=== PATIENT | male | born 1960 | race Caucasian/White ===

== ENCOUNTER 2016-05-03 19:16 | Inpatient (IN) | payer BC ==
--- NOTE | ~2016-05-03 | PRECARD ---
H&P [facility] [address] [place]. [address] NAME: DIMITRY LERNER : 60 STATUS : ADM IN [facility]#: [id number] AGE: 56 ADM/REG DATE : 05/03/16 MR#: [id number] REPORT SERV DATE: 05/03/16 DICTATED BY: EDDA KIRK DATE: 05/03/16 REPORT STATUS : Draft TRANSCRIBED BY: KITTY DATE: 05/03/16 DATE OF ADMISSION: 05/03/2016 HISTORY OF PRESENT ILLNESS: Mr. Dimitry Lerner is a 56-year-old gentleman, transferred from [facility] with acute inferior wall myocardial infarction. Mr. Lerner has no known cardiovascular disease. He developed chest pain about 6:30 in the evening, ongoing chest pressure, heaviness, 10/10 severity. His EKG demonstrated perhaps [address]-segment elevation, anterior ST depression, with lateral ST elevation as well in V5 to V6. He has not had discomfort previously. PAST MEDICAL HISTORY: Ongoing tobacco use. No diabetes, hypertension, or stroke or stroke-like symptoms. MEDICATIONS: None. SOCIAL HISTORY: Ongoing tobacco use, denies alcohol. FAMILY HISTORY: No definite family history of premature coronary artery disease. REVIEW OF SYSTEMS: Appears in pain. Negative and unremarkable except as noted above and below. All systems addressed. PHYSICAL EXAMINATION: VITAL SIGNS: Blood pressure is 132/62. GENERAL: Comfortable, in no acute distress. HEENT: No xanthelasma; lips without cyanosis LUNGS: Clear to auscultation, no wheezes, rales or rhonchi; good breath sounds. COR: No JVD or hepatojugular reflux, no murmurs, rubs or gallops, impulse mid clavicular line without carotid or abdominal bruits; normal S1 and S2. ABDOMEN: Bowel sounds positive, normal activity, without tenderness, masses or hepatosplenomegaly. EXTREMITIES: No edema, cyanosis. SKIN: Normal turgor. MS: Normal muscle strength, without kyphosis/scoliosis. NEURO/PSYCH: Alert and oriented times 4, no apparent anxiety or depression. IMAGING: EKG: Sinus rhythm with marked inferior elevation, anterior depression, ST elevation in lateral leads. ASSESSMENT: Mr. Lerner has acute inferior wall myocardial infarction. PLAN: To proceed with cardiac catheterization and possible angioplasty. I discussed the risks, benefits, and alternatives with Mr. Lerner. He understands and requests to proceed. H&P [address] [place] [address] NAME: DIMITRY LERNER : 60 STATUS : ADM IN PAT#: [id number] AGE: 56 ADM/REG DATE : 05/03/16 MR#: [id number] REPORT SERV DATE: 05/03/16 DICTATED BY: EDDA KIRK DATE: 05/03/16 REPORT STATUS : Draft TRANSCRIBED BY: KITTY DATE: 05/03/16 BEATRIZ/KITTY Edda Kirk M.D. / [id number] CC: Edda Kirk M.D. UNKNOWN
--- NOTE | ~2016-05-03 | DS ---
Discharge Summary [facility] [address] [place]. [address] NAME: LORI BURGOS : 60 STATUS : DIS IN PAT#: [id number] AGE: 56 ADM/REG DATE : 05/03/16 MR#: [id number] REPORT SERV DATE: 05/15/16 DICTATED BY: EDDA KIRK DATE: 05/14/16 REPORT STATUS : Draft TRANSCRIBED BY: KITTY DATE: 05/14/16 Data Collection from hospitalization DISCHARGE DIAGNOSES: 1. Acute inferior wall myocardial infarction. 2. Tobacco use. CONSULTATIONS: None. PROCEDURES: Cardiac catheterization and percutaneous coronary intervention, 05/03/2016. DISCHARGE MEDICATIONS: Ventolin one puff via inhaler every six hours as needed, aspirin 81 mg daily, Lipitor 40 mg at bedtime, Coreg 3.125 mg twice a day, Plavix 75 mg daily, Prinivil 5 mg at bedtime. He was instructed not to continue niacin. CONDITION ON DISCHARGE: Stable. DISPOSITION: The patient was discharged home on a low-cholesterol, low-sodium, cardiac diet with activities as instructed. He would follow up with me, 06/03/2016. He would follow up with his primary care provider as needed. HOSPITAL COURSE: This is a 56-year-old man, who was transferred from [facility] with an acute anterior wall myocardial infarction. The patient has no known cardiovascular disease. He developed chest pain around 6:30 in the evening with ongoing chest pressure and heaviness that was 10/10 in severity. His EKG demonstrated perhaps [address]-segment elevation and anterior ST depression with lateral ST elevation as well in V5 to V6. He had not had discomfort previously. EKG revealed sinus rhythm with marked inferior elevation, anterior depression, ST elevation in the lateral leads. It was felt that he would need to undergo cardiac catheterization and possible angioplasty. He was admitted to the hospital for further evaluation and treatment. 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 He tolerated this well and there were no complications. The following day, he had no chest pain or shortness of breath. He said he felt great. He was in a sinus rhythm. He had no ischemia seen on ECG. Over the next couple of days, he continued to progress. He remained in a normal sinus rhythm. He had no edema. His lungs remained clear. Discharge planning was performed. On 05/06/2016, the patient stated he felt fantastic. Discharge instructions were given. Due to his improved and stable condition, he was discharged home with the above-stated instructions. Information collected by: Diane Dominique I submit the above information as my discharge summary. REJI/KITTY Edda Kirk M.D. Discharge Summary [address] [address] NAME: LORI BURGOS : 60 STATUS : DIS IN PAT#: [id number] AGE: 56 ADM/REG DATE : 05/03/16 MR#: [id number] REPORT SERV DATE: 05/15/16 DICTATED BY: EDDA KIRK DATE: 05/14/16 REPORT STATUS : Draft TRANSCRIBED BY: KITTY DATE: 05/14/16 / [id number] CC: Edda Kirk M.D.
[2016-05-03 20:24] LABS: BASOPHILS 0.2 %; BASOPHILS ABSOLUTE 0.04 10/3/uL (0.0-0.16); EOSINOPHILS 0.9 %; EOSINOPHILS ABSOLUTE 0.19 10/3/uL (0.0-0.53); HEMOGLOBIN 15.4 g/dL (13.6-17.8); IMMATURE GRANULOCYTES 0.5 %; IMMATURE GRANULOCYTES ABSOLUTE 0.11 10/3/uL (0.0-0.11); LYMPHOCYTES 9.7 %; LYMPHOCYTES ABSOLUTE 2.12 10/3/uL (0.67-4.30); MEAN CORPUS HGB CONC 34.2 g/dL (32.0-36.0); MEAN CORPUSCULAR HEMOGLOB 29.3 pg (26.0-34.0); MEAN CORPUSCULAR VOLUME 85.6 fL (80-100); MEAN PLATELET VOLUME 9.4 fL (9.2-13.0); MONOCYTES 7.6 %; MONOCYTES ABSOLUTE 1.66 10/3/uL (0.21-1.20); NEUTROPHILS 81.1 %; NEUTROPHILS ABSOLUTE 17.82 10/3/uL (2.02-8.40); PLATELET COUNT 369 10/3/uL (150-400); RBC DISTRIBUTION WIDTH 12.8 % (12.0-16.0); RED CELL COUNT 5.26 10/6/uL (4.7-6.1); WHITE BLOOD CELLS 21.9 10/3/uL (4.5-10.5)
[2016-05-03 20:25] LABS: MANUAL DIFF NO %
[2016-05-03 20:33] LABS: INTERNATIONAL NORMAL RATI 1.1 UNITS (-); PARTIAL THROMBO TIME 77.6 SEC (22.5-37.2); PROTIME (NOT ORD) 14.2 SEC (12.0-14.5)
[2016-05-03 20:41] LABS: BUN (BLOOD UREA NITROGEN) 17 MG/DL (6-23); CALCIUM, SERUM 8.8 MG/DL (8.5-10.4); CHLORIDE, SERUM 103 MMOL/L (96-112); CO2 (CARBON DIOXIDE) 26 MMOL/L (24-34); CREATININE 0.82 MG/DL (0.70-1.30); GFR AFRICAN AMERICAN 115 ML/MIN (>=60); GFR NON AFRICAN AMERICAN 99 ML/MIN (>=60); GLUCOSE, SERUM 146 MG/DL (60-99); POTASSIUM, SERUM 3.9 MMOL/L (3.5-5.3); SODIUM, SERUM 139 MMOL/L (135-148)
[2016-05-03 20:44] LABS: CHEST PAIN PROFILE TAT 0 Hrs 25 Mins; TROPONIN I 0.16 NG/ML (<0.05)
[2016-05-03] MEDS ORDERED: VENTOLIN HFA INH (21:48)
[2016-05-03] MEDS ORDERED: NIACIN 500 PO (21:49)
[2016-05-03 22:22] LABS: BUN (BLOOD UREA NITROGEN) 16 MG/DL (6-23); CALCIUM, SERUM 8.6 MG/DL (8.5-10.4); CHLORIDE, SERUM 99 MMOL/L (96-112); CK-MB 294.5 NG/ML; CO2 (CARBON DIOXIDE) 30 MMOL/L (24-34); CPK 1930 U/L (0-200); CREATININE 0.85 MG/DL (0.70-1.30); GFR AFRICAN AMERICAN 113 ML/MIN (>=60); GFR NON AFRICAN AMERICAN 97 ML/MIN (>=60); GLUCOSE, SERUM 123 MG/DL (60-99); POTASSIUM, SERUM 4.1 MMOL/L (3.5-5.3); SODIUM, SERUM 137 MMOL/L (135-148)
[2016-05-03 22:23] LABS: CKMB INDEX (NOT ORD) 15.3
[2016-05-04 04:39] LABS: BASOPHILS 0.1 %; BASOPHILS ABSOLUTE 0.02 10/3/uL (0.0-0.16); EOSINOPHILS 0.6 %; EOSINOPHILS ABSOLUTE 0.09 10/3/uL (0.0-0.53); HEMATOCRIT 43.6 % (40.0-51.0); HEMOGLOBIN 14.6 g/dL (13.6-17.8); IMMATURE GRANULOCYTES 0.3 %; IMMATURE GRANULOCYTES ABSOLUTE 0.04 10/3/uL (0.0-0.11); LYMPHOCYTES 14.1 %; LYMPHOCYTES ABSOLUTE 1.97 10/3/uL (0.67-4.30); MANUAL DIFF NO %; MEAN CORPUS HGB CONC 33.5 g/dL (32.0-36.0); MEAN CORPUSCULAR VOLUME 86.7 fL (80-100); MEAN PLATELET VOLUME 9.6 fL (9.2-13.0); MONOCYTES 9.2 %; MONOCYTES ABSOLUTE 1.29 10/3/uL (0.21-1.20); NEUTROPHILS 75.7 %; NEUTROPHILS ABSOLUTE 10.57 10/3/uL (2.02-8.40); PLATELET COUNT 318 10/3/uL (150-400); RBC DISTRIBUTION WIDTH 12.9 % (12.0-16.0); RED CELL COUNT 5.03 10/6/uL (4.7-6.1)
[2016-05-04 04:59] LABS: BUN (BLOOD UREA NITROGEN) 17 MG/DL (6-23); CALCIUM, SERUM 8.6 MG/DL (8.5-10.4); CHLORIDE, SERUM 101 MMOL/L (96-112); CHOL/HDL RATIO(NOT ORDER) 5.1 (0-5); CHOLESTEROL 178 MG/DL (< 200); CO2 (CARBON DIOXIDE) 28 MMOL/L (24-34); CPK 4005 U/L (0-200); CREATININE 0.78 MG/DL (0.70-1.30); GFR AFRICAN AMERICAN 117 ML/MIN (>=60); GFR NON AFRICAN AMERICAN 101 ML/MIN (>=60); GLUCOSE, SERUM 115 MG/DL (60-99); HDL CHOLESTEROL 35 MG/DL (> 39); LDL CHOLESTEROL 116 MG/DL (< 130); NON-HDL CHOLESTEROL 143 MG/DL (< 160); SODIUM, SERUM 137 MMOL/L (135-148); TRIGLYCERIDE 137 MG/DL (< 150)
[2016-05-04 05:21] LABS: CK-MB 720.5 NG/ML
[2016-05-04 15:49] LABS: CK-MB 360.1 NG/ML
[2016-05-04 15:50] LABS: CKMB INDEX (NOT ORD) 15.2; TROPONIN I 75.7 NG/ML (<0.05)
[2016-05-04 21:54] LABS: CK-MB 157.3 NG/ML
[2016-05-04 21:56] LABS: CKMB INDEX (NOT ORD) 10.1
[2016-05-05 08:50] LABS: CREATININE 1.03 MG/DL (0.70-1.30)
[2016-05-06 04:37] LABS: CREATININE 0.98 MG/DL (0.70-1.30)
[2016-05-06] MEDS ORDERED: ASAB PO (08:36)
[2016-05-06] MEDS ORDERED: LIPITOR40 PO (08:37)
[2016-05-06] MEDS ORDERED: COREG3 PO (08:38)
[2016-05-06] MEDS ORDERED: PLAVIX PO (08:38)
[2016-05-06] MEDS ORDERED: PRIN5 PO (08:40)
== END 2016-05-06 11:05 | disposition home or self-care (01) | DRG 247 ==
LOC: SSU2 19:16 → CCU 20:47 → 6NO 05-04 10:35
PROVIDERS: Internal Medicine Cardiovascular Disease
PROC: 027034Z Dilation of Coronary Artery, One Artery with Drug-eluting Intraluminal Device, Percutaneous Approach (ICD-10-PCS; principal; 2016-05-03)
PROC: 4A023N7 Measurement of Cardiac Sampling and Pressure, Left Heart, Percutaneous Approach (ICD-10-PCS; 2016-05-03)
PROC: B2111ZZ Fluoroscopy of Multiple Coronary Arteries using Low Osmolar Contrast (ICD-10-PCS; 2016-05-03)
PROC: B2151ZZ Fluoroscopy of Left Heart using Low Osmolar Contrast (ICD-10-PCS; 2016-05-03)
DX: I21.19 ST elevation (STEMI) myocardial infarction involving other coronary artery of inferior wall (principal); F17.210 Nicotine dependence, cigarettes, uncomplicated; I25.10 Atherosclerotic heart disease of native coronary artery without angina pectoris
CPT/HCPCS: 71010; 80048; 80061; 82550; 82553; 82565; 83735; 84484; 85025; 85347; 85610; 85730; 87641; 93005; 93458; 94640; A9270-GY; C1713; C1760; C1769; C1874; C1887; C1894; C9606; J0583; J2250; J3010; Q9967